=== PATIENT | female | born 1955 ===

== ENCOUNTER 2018-05-24 08:52 | Outpatient (CLI) | payer OTHER | END 2018-05-24 08:53 | disposition home or self-care (01) | LOC: C.LAB 08:52 | DX: R31.29 Other microscopic hematuria (principal) ==

== ENCOUNTER 2018-05-31 09:57 | Outpatient (CLI) | payer OTHER | END 2018-05-31 09:58 | disposition home or self-care (01) | LOC: C.MAMMO 09:57 | DX: Z12.31 Encounter for screening mammogram for malignant neoplasm of breast (principal) ==

== ENCOUNTER 2018-06-30 09:19 | Outpatient (CLI) | payer OTHER | END 2018-06-30 09:20 | disposition home or self-care (01) | LOC: C.LAB 09:19 | DX: Z00.00 Encounter for general adult medical examination without abnormal findings (principal) ==

== ENCOUNTER 2018-07-03 10:15 | Emergency (ER) | payer OTHER ==
[2018-07-03 10:21] VITALS: TEMP 98.4
--- NOTE | 2018-07-03 11:50 | C.PDOC ---
History Of Present Illness NEW ONSET VERTIGO LIKE DIZZY X 3 DAYS. WORSE W POSITOIN CHANGE, WALKING. +NAUSEA. +ALICEA. NO OTHER ASSOC SX EXAM MILD DIS TNONTOXIC HEENT +NYSTAGMUS B/L FAST HORIZONTAL W INDUCIBLE VERTIGO NECK SUPPLE NEURO NO FOCAL DEF CV RRR REMAINDER NEG Time Seen by Provider: 07/03/18 11:39 Chief Complaint (Nursing): Dizziness/Lightheaded History Per: Patient History/Exam Limitations: no limitations Onset/Duration Of Symptoms: Days Current Symptoms Are (Timing): Still Present Severity: Moderate Past Medical History Reviewed: Historical Data, Nursing Documentation, Vital Signs Vital Signs: Last Vital Signs Temp 98.4 F 07/03/18 10:17 Pulse 60 07/03/18 10:17 Resp 18 07/03/18 10:17 BP 147/74 07/03/18 10:17 Pulse Ox 98 07/03/18 10:17 - Medical History PMH: HTN Surgical History: Appendectomy Family History: States: No Known Family Hx - Social History Hx Alcohol Use: No Hx Substance Use: No - Immunization History Hx Tetanus Toxoid Vaccination: No Hx Influenza Vaccination: No Hx Pneumococcal Vaccination: No Review Of Systems Except As Marked, All Systems Reviewed And Found Negative. Constitutional: Negative for: Fever, Chills Cardiovascular: Negative for: Chest Pain Respiratory: Negative for: Shortness of Breath Gastrointestinal: Positive for: Nausea. Negative for: Vomiting, Abdominal Pain Neurological: Positive for: Headache, Dizziness Physical Exam - Physical Exam Appears: Other (mild distress) Skin: Normal Color, Warm, Dry Head: Atraumatic, Normacephalic Eye(s): bilateral: Other (nystagmus fast horizontal with inducible vertigo) Neck: Supple Chest: Symmetrical Cardiovascular: Rhythm Regular (RRR) Respiratory: Normal Breath Sounds, No Rales, No Rhonchi, No Wheezing, Other (NARD) Extremity: Normal ROM Neurological/Psych: Oriented x3, Normal Speech, Other (no focal deficits) ED Course And Treatment - Laboratory Results Result Diagrams: 07/03/18 11:59 07/03/18 11:59 ECG: Interpreted By Me ECG Rhythm: Sinus Rhythm ECG Interpretation: Normal Rate From EC O2 Sat by Pulse Oximetry: 98 (RA) Pulse Ox Interpretation: Normal Progress - Re-Evaluation Re-evaluation Note: 07/03/18 14:07 AMBUL WO DIFF FEELS BETTER NEURO INTACT - Data Reviewed Data Reviewed: Lab, Diagnostic imaging, EKG, Old records Medical Decision Making Medical Decision Making: Plan: --Labs --ECG --CXR --CT-Head Disposition Counseled Patient/Family Regarding: Studies Performed, Diagnosis, Need For Followup, Rx Given - Disposition Referrals: [facility] [Outside] [facility] [Outside] YOUR,PMD [Other] Disposition: HOME/ ROUTINE Disposition Time: 14:08 Condition: IMPROVED Prescriptions: Meclizine [Antivert] 50 mg PO TID PRN #15 tab PRN Reason: Dizziness Ondansetron ODT [Zofran ODT] 4 mg PO TID PRN #12 odt PRN Reason: Nausea/Vomiting Instructions: Vertigo (a Type of Dizziness) (DC) Forms: [employer] (Nauruan) - Clinical Impression Clinical Impression: Vertigo - Scribe Statement The provider has reviewed the documentation as recorded by the Delibe Tamica Marcelo Provider Attestation: All medical record entries made by the Delibmorteza were at my direction and personally dictated by me. I have reviewed the chart and agree that the record accurately reflects my personal performance of the history, physical exam, medical decision making, and the department course for this patient. I have also personally directed, reviewed, and agree with the discharge instructions and disposition.
[2018-07-03] MEDS ORDERED: Sodium Chloride 0.9% 500 ML IV ONE (11:51)
[2018-07-03 12:02] LABS: BASO % 0.6 % (0.0-2.0); EOS # 0.2 K/uL (0.0-0.7); EOS % 2.9 % (0.0-4.0); LYMPH # 1.3 K/uL (1.0-4.3); LYMPH % 23.3 % (20.0-40.0); MEAN CELL VOLUME 90.8 fL (81.0-99.0); MEAN CORPUSCULAR HEMOGLOBIN 30.6 pg (27.0-31.0); MEAN CORPUSCULAR HGB CONC 33.8 g/dL (33.0-37.0); MEAN PLATELET VOLUME 8.1 fL (7.2-11.7); MONO # 0.4 K/uL (0.0-0.8); MONO % 6.8 % (0.0-10.0); NEUT # 3.6 K/uL (1.8-7.0); NEUT % 66.4 % (50.0-75.0); RBC 4.25 Mil/uL (3.80-5.20); RED CELL DISTRIBUTION WIDTH 14.4 % (11.5-14.5); WHITE BLOOD COUNT 5.4 K/uL (4.8-10.8)
[2018-07-03 12:15] LABS: BLOOD UREA NITROGEN 18 mg/dL (7-17); CALCIUM 9.5 mg/dl (8.6-10.4); GFR NON-AFRICAN AMERICAN > 60
--- NOTE | 2018-07-03 12:46 | CT ---
Date of service: 07/03/2018 PROCEDURE: CT HEAD WITHOUT CONTRAST. HISTORY: VERTIGO COMPARISON: None available. TECHNIQUE: Axial computed tomography images were obtained through the head/brain without intravenous contrast. Radiation dose: Total exam DLP = 1186.05 mGy-cm. This CT exam was performed using one or more of the following dose reduction techniques: Automated exposure control, adjustment of the mA and/or kV according to patient size, and/or use of iterative reconstruction technique. FINDINGS: HEMORRHAGE: No intracranial hemorrhage. BRAIN: No mass effect or edema. Dia-white matter differentiation appears intact. Please note that MRI with diffusion imaging is more sensitive in the detection of acute ischemic event. VENTRICLES: No hydrocephalus. CALVARIUM: 5 x 16 mm hyperdense focus within the left calvarium. PARANASAL SINUSES: Unremarkable as visualized. No significant inflammatory changes. MASTOID AIR CELLS: Unremarkable as visualized. No inflammatory changes. OTHER FINDINGS: None. IMPRESSION: No acute intracranial pathology identified. Findings as above.
--- NOTE | 2018-07-03 13:19 | RAD ---
Date of service: 07/03/2018 PROCEDURE: CHEST RADIOGRAPH, 1 VIEW HISTORY: DIZZY COMPARISON: None available. FINDINGS: LUNGS: Clear. PLEURA: No pneumothorax or pleural fluid seen. CARDIOVASCULAR: No aortic atherosclerotic calcification present. Normal. OSSEOUS STRUCTURES: No significant abnormalities. VISUALIZED UPPER ABDOMEN: Normal. OTHER FINDINGS: None. IMPRESSION: No active disease.
[2018-07-03 14:03] VITALS: BP 135/62
[2018-07-03 14:51] VITALS: PULSE 57; RESP 20; O2SAT 100
== END 2018-07-03 14:51 | disposition home or self-care (01) ==
LOC: C.ER 10:15
DX: R42 Dizziness and giddiness (principal)
CPT/HCPCS: 70450; 71045; 80048; 82948; 85025; 96361; 96374; 99285; J2405; J7040